=== PATIENT | male | born 1940 | race Caucasian/White ===

== ENCOUNTER → 2018-10-31 | Outpatient (CLI) | payer MEDICARE, OTHER | LOC: PT 11:29 → EDSTATUS 13:00 → PT 13:00 | DX: Z01.818 Encounter for other preprocedural examination (principal); M25.862 Other specified joint disorders, left knee ==

== ENCOUNTER 2018-11-05 10:48 | Inpatient (IN) | payer MEDICARE ==
[~2018-11-05] VITALS: Ht 177.8 cm; Wt 130.0 kg
[2018-11-05 12:29] VITALS: BP 190/75
[2018-11-05] MEDS ORDERED: TRAMADOL 50 MG TAB PO (13:03)
[2018-11-05] MEDS ORDERED: NORCO 7.5-3251 EACH PO (13:04)
[2018-11-05] MEDS ORDERED: PANTOPRAZOLE SO40 MG PO (13:05)
[2018-11-05] MEDS ORDERED: METFORMIN HYD1000 MG PO (13:06)
[2018-11-05] MEDS ORDERED: CARVEDILOL6.25 MG PO (13:07)
[2018-11-05] MEDS ORDERED: ZOLPIDEM TART10 MG PO (13:07)
[2018-11-05] MEDS ORDERED: FLUTICASON0.05 MG/AC NS (13:10)
[2018-11-05] MEDS ORDERED: ALBUTEROL2.5 MG/3 M IH (13:13)
[2018-11-05] MEDS ORDERED: ATROVENT I0.2 MG/1 M IH (13:18)
[2018-11-05] MEDS ORDERED: ATORVASTATIN CA40 MG PO (13:20)
[2018-11-05 13:21] VITALS: BP 147/65
[2018-11-05] MEDS ORDERED: LEVOTHYROXINE100 MC1 PO (13:21)
[2018-11-05] MEDS ORDERED: PULMICORT0.5 MG/2 M IH (13:23)
[2018-11-05] MEDS ORDERED: FERROUS SULFAT325 M4 PO (13:24)
[2018-11-05] MEDS ORDERED: PERFOROMIS20 MCG/21 IH (13:25)
[2018-11-05] MEDS ORDERED: AMARYL1 M1 PO (13:27)
[2018-11-05] MEDS ORDERED: TRENTAL 400MG400 MG PO (13:30)
[2018-11-05] MEDS ORDERED: MULTI-VITAMIN1 EACH PO (13:30)
[2018-11-05] MEDS ORDERED: ECOTRIN325 M1 PO (13:31)
[2018-11-05] MEDS ORDERED: OPTIMUM FOLIC800 MCG PO (13:32)
[2018-11-05 15:00] VITALS: BP 171/73
[2018-11-05 18:26] VITALS: BP 168/65
[2018-11-06 06:28] VITALS: BP 144/68
[2018-11-06 18:17] VITALS: BP 178/81
[2018-11-07 07:13] VITALS: BP 173/74
[2018-11-07 09:44] LABS: CALCIUM 9.1 mg/dL (8.4-10.2); POTASSIUM 4.6 mmol/L (3.6-5.0)
[2018-11-07 10:28] LABS: EOS # 0.4 (0.04-0.40); EOS % 6.4 % (0.0-4.0); HEMATOCRIT 32.7 % (42.0-52.0); HEMOGLOBIN 10.2 g/dL (13.5-18.0); LYMPH# 0.8 (1.50-4.00); MEAN CELL VOLUME 92 fl (78-100); MEAN CORPUSCULAR HEMOGLOBIN 29 pg (27-31); MEAN CORPUSCULAR HGB CONC 31 g/dL (33-37); MEAN PLATELET VOLUME 9.4 fl (7.4-10.4); MONO # 0.7 (0.20-0.80); NEU # 4.1 (1.40-6.50); PLATELET COUNT 154 K/mm3 (130-400); RED BLOOD COUNT 3.57 M/mm3 (4.20-5.60); RED CELL DISTRIBUTION WIDTH 13.4 % (11.5-14.5); WHITE BLOOD COUNT 6.1 K/mm3 (4.8-10.8)
[2018-11-07 18:47] VITALS: BP 170/65
[2018-11-08 06:37] VITALS: BP 167/68
[2018-11-08 19:00] VITALS: BP 140/67
[2018-11-09 06:15] VITALS: BP 164/71
[2018-11-09 12:10] LABS: URINE APPEARANCE CLEAR; URINE BILIRUBIN NEGATIVE (NEGATIVE); URINE BLOOD NEGATIVE (NEGATIVE); URINE COLOR YELLOW; URINE GLUCOSE NEGATIVE (NEGATIVE); URINE KETONE NEGATIVE (NEGATIVE); URINE LEUKOCYTE ESTERASE NEGATIVE (NEGATIVE); URINE NITRATE NEGATIVE (NEGATIVE); URINE PROTEIN(semi-quant) 1+ mg/dL (NEGATIVE); URINE UROBILINOGEN NORMAL (NORMAL); URINE WBC 0-1 /hpf (0-3)
[2018-11-09 18:45] VITALS: BP 143/64
[2018-11-10 06:22] VITALS: BP 167/75
[2018-11-10 17:00] VITALS: BP 174/61
[2018-11-11 06:16] VITALS: BP 151/84
[2018-11-11 17:25] VITALS: BP 152/64
[2018-11-12 06:38] VITALS: BP 115/79
[2018-11-12 17:17] VITALS: BP 147/80
[2018-11-13 06:20] VITALS: BP 103/68; BP 161/79
[2018-11-13 17:42] VITALS: BP 153/74
[2018-11-14 06:19] VITALS: BP 165/74
[2018-11-14 18:24] VITALS: BP 182/72
[2018-11-15 06:12] VITALS: BP 173/65
== END 2018-11-15 10:55 | disposition home health service (06) | DRG 560 ==
LOC: MED/SURG 10:48
PROVIDERS: ADMIT Nurse Practitioner Primary Care
DX: Z47.1 Aftercare following joint replacement surgery (principal); Z68.41 Body mass index [BMI] 40.0-44.9, adult; Z96.652 Presence of left artificial knee joint; R05 Cough; J44.9 Chronic obstructive pulmonary disease, unspecified; Z85.038 Personal history of other malignant neoplasm of large intestine; K21.9 Gastro-esophageal reflux disease without esophagitis; M1A.9XX0 Chronic gout, unspecified, without tophus (tophi); E11.9 Type 2 diabetes mellitus without complications; I10 Essential (primary) hypertension; Z87.891 Personal history of nicotine dependence; E66.9 Obesity, unspecified; Z90.49 Acquired absence of other specified parts of digestive tract; E78.5 Hyperlipidemia, unspecified